=== PATIENT | male | born 1955 | race Caucasian/White ===

== ENCOUNTER 2025-06-19 08:19 | Outpatient (AMB) | payer MEDICARE, SELFPAY ==
--- NOTE | 2025-06-19 08:26 | A.OFFPC_ITS ---
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 Accompanied by: Self / Same As Patient Allergies clindamycin Allergy (Mild, Verified 06/19/25 08:45) Diarrhea Penicillins (PCN) Allergy (Mild, Verified 06/19/25 08:45) Hives procaine (From Novocain) Allergy (Mild, Verified 06/19/25 08:45) Hives Seasonal Allergies Allergy (Mild, Verified 06/19/25 08:45) Unknown Tobacco use date assessed: 06/19/25 Fall risk assessment: 2 + Falls in past year Last assessed Fall Risk: 06/19/25 Dental Screening Dental Screen Date: 06/19/25 Did you have a dental visit in the last 12 months?: Yes Did you have a dental problem in the last 6 months where you did not have access to dental care?: No Was dental information given to patient?: Patient has dentist HPI HPI Comments History of Present Illness Details History of Present Illness - The patient is a 70-year-old male pres enting to [facility]. - His medical history is significant for a recent bleeding gastric ulcer. - This presented with sudden diaphoresis and melena, and he was admitted to the hospital. - He denies use of high-dose pain killer s prior to the bleeding incident. - A biopsy of the ulcer was negative for H. pylori. - He was initially prescribed pantoprazo le twice daily, which has been reduced to once daily. - A repeat esophagogastroduodenoscopy pe rformed last week showed that the ulcers have resolved. - The patient also reports a history of gastroesophageal reflux disease. - He has a history of anemia, which caus ed him to feel tired. - His hemoglobin was 9 g/dL at the [facility] during the gastrointestinal bleeding event and has since improved to 12.7 g/dL. - He currently takes an iron supplement. - The patient has a history of hypertens ion, which is managed with amlodipine. - His blood pressure is reported to be w ell-controlled. - His cholesterol is also under control. - He is scheduled for a left total hip a rthroplasty on July [address] Chu at [facility]. - He uses Tylenol Arthritis for pain. - He plans to go home after the procedur e without a stay at a long term facility. - He has a history of a right total knee arthroplasty performed by the same group. - He has a very large prostate, measured at 145g on a prior MRI, and experiences nocturia three to four times a night. - He sees a urologist but has not decide d on prostate surgery. - He has a history of pruritus, for whic h he takes fexofenadine and has seen a air duct mechanic. - He uses Flonase seasonally in the [facility] for allergies. - Regarding his hearing, he has document ed hearing loss and was recommended a hearing aid but finds that it worsens his tinnitus. - A colonoscopy five years ago found one polyp, but a recent colonoscopy at [facility] showed no polyps. Social History - Employment: The patient is basically r etired; he previously worked in [employer]. 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 Results - Labs: Hemoglobin was 9.0 g/dL post-ble eding event and improved to 12.7 g/dL on a subsequent test performed in May. - Tests and Diagnostics: Recent esophago gastroduodenoscopy showed resolved ulcers. - Tests and Diagnostics: Biopsy of the g astric ulcer was negative for H. pylori. - Tests and Diagnostics: Recent colonosc opy was negative for polyps. PFSH Family History (Updated 06/19/25 @ 08:48 by SANJANA Love) Father Lung cancer Mother Dementia Social History (Updated 06/19/25 @ 08:48 by SANJANA Love) Housing: Apartment Alcohol intake: current Alcohol intake frequency: holidays/special occasions only Patient Tobacco Use Status: Never used Tobacco service: No Current occupational status: retired Cognitive needs: No Hearing needs: No Vision needs: Yes (rx glasses) Questionnaire PHQ-9 Over the last 2 weeks, how often have you been bothered by any of the following problems? 1. Little interest or pleasure in doing things: not at all 2. Feeling down, depressed, or hopeless: not at all 3. Trouble falling or staying asleep, or sleeping too much: not at all 4. Feeling tired or having little energy: not at all 5. Poor appetite or overeating: not at all 6. Feeling bad about yourself - or that you are a failure or have let yourself or your family down: not at all 7. Trouble concentrating on things, such as reading the newspaper or watching television: not at all 8. Moving or speaking so slowly that other people could have noticed. Or the opposite - being so fidgety or restless that you have been moving around a lot more than usual: not at all 9. Thoughts that you would be better off or of hurting yourself in some way: not at all Total score: 0 Source: Developed by Drs. Alexys Velasquez, Gricelda Bearden, Wilner Valdivia and colleagues, with an educational yasmin from [employer]. Thrive Questionnaire Date Thrive assessed: 06/19/25 I am a: Patient What is your living situation today?: I have a steady place to live Within the past 12 months, did the food you bought not last and you didn't have the money to get more?: Never true Within the past 12 months, did you worry whether your food would run out before you got money to buy more?: Never true Do you have trouble paying for medicines?: No Do you have trouble getting transportation to medical appointments?: No Do you have trouble paying your heating and electricity bill?: No Do you have trouble taking care of your child, family member or friend?: No Do you have trouble with day-to-day activities such as bathing, preparing meals, shopping, managing finances, etc.?: No Are you currently unemployed and looking for a job?: No Are you interested in more education?: No Please select the resources that you would like help with: None THRIVE Score: 0 AUDIT C Alcohol Use Questionnaire (AUDIT-C) 1. How often do you have a drink containing alcohol?: Monthly or less 2. How many drinks containing alcohol do you have on a typical day when you are drinking?: 1 or 2 3. How often do you have six or more drinks on one occasion?: Never Total Score: 1 NICOLAS-7 AMB Questionnaire NICOLAS-7 Date NICOLAS - 7 assessed: 06/19/25 Feeling nervous, anxious, or on edge: 0 = Not at all Not being able to stop or control worryin = Not at all Worrying too much about different things: 0 = Not at all Trouble relaxin = Not at all Being so restless that it is hard to sit still: 0 = Not at all Becoming easily annoyed or irritable: 0 = Not at all Feeling afraid as if something awful might happen: 0 = Not at all Total NICOLAS-7 score (0-4 normal; 5-9 mild; 10-14 moderate; 15-21 severe): 0 Source: Developed by Drs. Alexys Velasquez, Gricelda Bearden, Wilner Valdivia and colleagues, with an educational yasmin from [employer]. Review of Systems Narrative Review of Systems - Constitutional: Reports fatigue. - Eyes: Reports good vision with glasses; denies seeing halos around lights or photophobia. - Ears: Reports hearing loss and tinnitus; he has difficulty with hearing but can use the phone and watch TV, though his family complains about the volume. - Respiratory: Reports using Flonase seasonally for allergies. - Gastrointestinal: Reports history of reflux; denies any symptoms from the recent ulcer. - Genitourinary: Reports nocturia three to four times per night. - Musculoskeletal: Reports left hip pain managed with Tylenol Arthritis. - Integumentary: Reports pruritus managed with an allergy pill. Physical exam (Primary Care) Vital Signs: Last Vital Signs Temp 97.6 F 06/19/25 08:39 Pulse 72 06/19/25 08:39 Resp 14 06/19/25 08:39 BP 128/73 06/19/25 08:52 Pulse Ox 97 06/19/25 08:39 Oxygen Delivery Method Room Air 06/19/25 08:39 BMI result Body Mass Index 33.9 Tobacco/Smoking Status: Tobacco use Status Tobacco use date assessed 06/19/25 06/19/25 08:28 Patient Tobacco Use Status Never used Tobacco 06/19/25 08:48 PHQ-9: PHQ-9 Score PHQ-9: Total score 0 06/19/25 09:08 Thrive Assessment: Date of Thrive Assessment Date Thrive assessed 06/19/25 06/19/25 08:28 Narrative Physical Exam General: Cooperative and healthy appearing Nutritional Appearance: Well nourished Orientation/consciousness: Patient oriented x3 Limitations: No limitations Head: Normal to inspection General: Appearance normal, both eyes and all related structures Neck: Normal visual inspection Chest: Normal palpation of entire chest wall Respiratory: Normal respiratory effort Neurology: Patient oriented x3 Office Procedures Flu Questionnaire Does the patient have a severe egg allergy?: No Does the patient have severe life threatening allergies?: No Does the patient have a fever or illness today?: No Has the patient ever had Guillain-[place] Syndrome?: No Has the patient ever had any past reaction to a flu shot?: No Immunizations Fluarix [id number] (PF) 45 mcg (15 mcg x 3)/0.5 mL IM syringe Performing Provider: Andrey Ramos MD [facility] Administered by: SANJANA Love on 06/19/25 08:48 Dose Route Admin Location Dispensed Lot Number Expiration Date [facility] Purchasing Administrative Assistant 0.5 mL IM Left Deltoid 0.5 mL [id number] 01/08/26 [id number] [employer] VIS Given Date VIS Provided VIS Publication Date 06/19/25 Single Vaccine 24 Eligibility Eligibility Date Funding Source Not [facility] Eligible 06/19/25 Private Coding Level of Care Code Est Pt Level 4 (61561) Add On Problem Visit Only Diagnoses 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 - Peptic Ulcer Disease/Anemia: The patient will continue taking his proton-pump inhibitor (pantoprazole) once daily. - Peptic Ulcer Disease/Anemia: He will follow up with his agriculture engineer in three months. - Osteoarthritis of Hip: A referral was placed for his orthopedic surgeon, Dr. Chu, for the upcoming left hip replacement surgery. - Benign Prostatic Hyperplasia: The patient will continue to follow up with his urologist regarding management. - Medications: No refills are needed at this time. - Health Maintenance: The patient received his influenza vaccination today. - Coordination of Care: The patient was instructed to get his blood work done through the [facility] system for easier access to results. - Coordination of Care: The patient was advised to contact the office if a new referral is needed for his surgery in July due to an insurance change. - Coordination of Care: A request for medical records from his previous provider will be initiated. - Follow-up: The patient will follow up in six months. Discussion Notes I discussed with the patient that his recent peptic ulcer disease has been treated and his associated anemia is improving, though his hemoglobin is still a little low. I explained that some of his fatigue is likely from the anemia. We will repeat blood work to monitor this. I emphasized the importance of continuing the pantoprazole. We reviewed his upcoming left hip replacement and I placed a new referral for him due to his insurance changing. I advised him to continue following up with his urologist for his prostatic enlargement. I provided a lab request and instructed him on where he could have his blood drawn so the results would come directly to me. I advised a follow-up visit in six months. Patient Instructions - Go to the lab to have your blood drawn as discussed. We will check your blood counts to see if the anemia is getting better. - It is very important to continue taking your stomach medication, pantoprazole, every day. - Keep your follow-up appointment with your stomach doctor (agriculture engineer) in three months. - Continue to follow up with your urologist for your prostate issues. - Contact the office in July if you need another referral for your hip surgery because of your insurance change. - When you check out, please tell the front sight attacher that you need a form to get your medical records from your previous doctor's office. - Schedule a follow-up appointment to see me again in six months. Orders: Orders Influenza [id number] Immunization 06/19/25 Z23 - Encounter for immunization Complete Blood Count no Diff 06/19/25 D64.9 - Anemia, unspecified Referrals Orthopedics Referral M00.052 - Staphylococcal arthritis, left hip
[2025-06-19 08:39] VITALS: BP 162/81; PULSE 72; RESP 14; TEMP 36.4; O2SAT 97; BMI 33.9
[2025-06-19 08:52] VITALS: BP 128/73
== END 2025-06-19 09:19 | disposition home or self-care (01) ==
LOC: HO.HMCSH 08:20
PROVIDERS: PCP Internal Medicine; Visit Provider Internal Medicine
DX: Z23 Encounter for immunization (principal)

== ENCOUNTER → 2025-06-19 08:19 | Outpatient (BNVA) | payer MEDICARE, SELFPAY | PROVIDERS: PCP Internal Medicine; Visit Provider Internal Medicine | DX: K21.9 Gastro-esophageal reflux disease without esophagitis (principal); K25.9 Gastric ulcer, unspecified as acute or chronic, without hemorrhage or perforation; D64.9 Anemia, unspecified; I10 Essential (primary) hypertension; N40.1 Benign prostatic hyperplasia with lower urinary tract symptoms; R35.1 Nocturia; M00.052 Staphylococcal arthritis, left hip; Z23 Encounter for immunization | CPT/HCPCS: 90471; 90656; 96127; 99212 ==